=== PATIENT | female | born 1990 | race Caucasian/White ===

== ENCOUNTER 2019-10-26 18:48 | Emergency (ER) | payer MEDICAID ==
[~2019-10-26] VITALS: Ht 160 cm; Wt 68.2 kg
[2019-10-26 18:57] VITALS: Ht 160 cm; Wt 68.2 kg
[2019-10-26 20:41] VITALS: BP 130/79
== END 2019-10-26 20:41 | disposition home or self-care (01) ==
LOC: D.ER 18:48
DX: S61.214A Laceration without foreign body of right ring finger without damage to nail, initial encounter (principal); X58.XXXA Exposure to other specified factors, initial encounter